=== PATIENT | male | born 1950 | race Caucasian/White ===

== ENCOUNTER 2016-11-04 20:19 | Inpatient (IN) | payer OTHER ==
--- NOTE | ~2016-11-04 | CR63 ---
[facility] A Service of [facility] RADIOLOGY TEXT RESULTS PATIENT: VEL RAMIREZ LOCATION: [facility] 324- : 52 UNIT #: [id number] AGE: [address]: Moises Mensah MD SEX: M ORDER DR: [id number] [facility] [address] [facility]. [place], [place] [address] [id number] I MR#: [id number] Acc #: [id number] NAME: VEL RAMIREZ. : 1950 SEX: M STUDY DATE/TIME: 11/05/2016 7:34 UNIT: [address] ROOM: [facility] STUDY DESCRIPTION: CR Chest 2 View Attending Physician: Bj Mensah M.D. Ordering Physician: Neelima Way M.D. Primary Care Physician: Michael Pressley M.D. MEDICAL IMAGING REPORT This report is preliminary unless electronic signature is present EXAM PA and lateral chest 3 views HISTORY COPD, cough, and congestion for 2 days. TECHNIQUE PA and lateral views of the chest are obtained. COMPARISON Prior chest of 11/04. FINDINGS The cardiac size remains normal. Again, there are changes of chronic obstructive lung disease. There is infiltrate in the right upper lobe. It is not well seen on the frontal radiograph, but is clearly present on the lateral film. This is associated with some mild volume loss in the right upper lobe. This is a new finding compared to the patient's recent chest radiograph of February 2015 and a recent chest CT of July 28, 2016. Lungs otherwise are clear. CONCLUSION 1. Advanced COPD. 2. New right upper lobe infiltrate, best appreciated on the lateral views. Suggest followup chest radiographs until complete clearing. Dictated by... Henry Bolton M.D. THIS IS AN ELECTRONICALLY VERIFIED REPORT Henry Bolton M.D. at 11/05/2016 3:12 PM ELIDIA/emeka [facility] A Service of [facility] RADIOLOGY TEXT RESULTS PATIENT: VEL RAMIREZ LOCATION: [facility] 324-01 : 52 UNIT #: [id number] AGE: [address]: Moises Mensah MD SEX: M ORDER DR: TD: 11/05/2016 14:25 JOB #: [id number] MEDICAL IMAGING REPORT Page 1 of 1 COPY
--- NOTE | ~2016-11-04 | CR63 ---
[facility] A Service of [facility] RADIOLOGY TEXT RESULTS PATIENT: VEL RAMIREZ LOCATION: [facility] 324-01 : 52 UNIT #: [id number] AGE: [address]: Moises Mensah MD SEX: M ORDER DR: [id number] [facility] [address] [facility]. [place], [place] [address] [id number] I MR#: [id number] Acc #: [id number] NAME: VEL RAMIREZ. : 1950 SEX: M STUDY DATE/TIME: 11/07/2016 10:46 UNIT: [address] ROOM: [facility] STUDY DESCRIPTION: CR Chest 2 View Attending Physician: Moises Mensah Ordering Physician: Bj Mensah M.D. Primary Care Physician: Michael Pressley M.D. MEDICAL IMAGING REPORT This report is preliminary unless electronic signature is present EXAM PA and lateral chest, 11/07/2016 COMPARISON Portable chest 11/05/2016 HISTORY Short of air. FINDINGS There is a new right middle lobe infiltrate or atelectasis. There is no effusion or pneumothorax. Heart size is normal. Dictated by... Luis E Garcia M.D. THIS IS AN ELECTRONICALLY VERIFIED REPORT Luis E Garcia M.D. at 11/08/2016 10:54 AM JAI/holly TD: 11/07/2016 18:13 JOB #: [id number] MEDICAL IMAGING REPORT Page 1 of 1 COPY
--- NOTE | ~2016-11-04 | CR72 ---
[facility] A Service of [facility] & [facility] RADIOLOGY TEXT RESULTS PATIENT: VEL RAMIREZ LOCATION: [facility] 324-01 : 52 UNIT #: [id number] AGE: [address]: Moises Mensah MD SEX: M ORDER DR: [id number] [facility] [address] [facility]. [place], [place] [address] [id number] I MR#: [id number] Acc #: [id number] NAME: VEL RAMIREZ. : 1950 SEX: M STUDY DATE/TIME: 11/04/2016 20:47 UNIT: [address] ROOM: [facility] STUDY DESCRIPTION: CR Chest Single View Portable Attending Physician: Bj Mensah M.D. Ordering Physician: Riky Guerra M.D. Primary Care Physician: Michael Pressley M.D. MEDICAL IMAGING REPORT This report is preliminary unless electronic signature is present EXAM Portable chest INDICATIONS Shortness of breath for 2 days. COMPARISON 02/13/2015 FINDINGS No acute infiltrate. Heart size normal. Visualized osseous structures unremarkable. IMPRESSION No active disease. Dictated by... Gareth Gannon M.D. THIS IS AN ELECTRONICALLY VERIFIED REPORT Gareth Gannon M.D. at 11/05/2016 7:45 PM SHAQ/emeka TD: 11/05/2016 11:25 JOB #: [id number] MEDICAL IMAGING REPORT Page 1 of 1 COPY
--- NOTE | ~2016-11-04 | CR211 ---
[facility] A Service of [facility] & [facility] RADIOLOGY TEXT RESULTS PATIENT: VEL RAMIREZ LOCATION: [facility] 324-01 : 52 UNIT #: [id number] AGE: [address]: Moises Mensah MD SEX: M ORDER DR: [id number] [facility] [address]. [place], [place] [address] [id number] I MR#: [id number] Acc #: [id number] NAME: VEL RAMIREZ. : 1950 SEX: M STUDY DATE/TIME: 11/07/2016 10:51 UNIT: [address] ROOM: [facility] STUDY DESCRIPTION: CR Ribs Uni 2 View W PA Ch Rt Attending Physician: Moises Mensah Ordering Physician: Bj Mensah M.D. Primary Care Physician: Michael Pressley M.D. MEDICAL IMAGING REPORT This report is preliminary unless electronic signature is present EXAM PA chest with right rib series COMPARISON Chest radiograph 11/05/2016 HISTORY Fell 1 week ago. Right side rib and chest pain. FINDINGS Chest radiograph demonstrates a right middle lobe atelectasis or infiltrate. Right rib series shows no evidence of fracture. There is no pneumothorax. IMPRESSION Right middle lobe infiltrate or atelectasis, no acute bony abnormality. Dictated by... Luis E Garcia M.D. THIS IS AN ELECTRONICALLY VERIFIED REPORT Luis E Garcia M.D. at 11/08/2016 10:54 AM TEV/holly TD: 11/07/2016 18:14 JOB #: [id number] MEDICAL IMAGING REPORT Page 1 of 1 COPY
--- NOTE | ~2016-11-04 | HP ---
Unit #: [id number] #: [id number] Patient: VEL RAMIREZ [id number] [facility]. [place], [place] [address] [id number] I MR#: [id number] NAME: VEL RAMIREZ. ROOM: 324 Age: 66 Sex: M Admission Date: 11/04/2016 : 1950 Attending Physician: Bj Mensah M.D. Primary Care Physician: Michael Pressley M.D. HISTORY AND PHYSICAL HISTORY OF PRESENT ILLNESS This is a pleasant gentleman long known to us with a history of COPD or possible asthma. He has a remote history of smoking however he states that he quit more than 30 to 40 years ago. Patient states that he has had approximately three days of worsening shortness of breath, no clear significant sick contacts. 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 The patient denies any sort of increasing lower extremity edema and significant weakness. He now presents with what looks like a COPD exacerbation and therefore the patient is being held in the hospital for IV steroids and IV antibiotics. REVIEW OF SYSTEMS The review of systems is positive for worsening shortness of breath, cough which is nonproductive of any sputum, a little bit of chest tightness. No fevers. No chills. No nausea. No vomiting. No vision changes or spinal issues. PAST MEDICAL HISTORY The past medical history is significant for supraventricular tachycardia followed by Dr. Butts, history of reflux seen by Dr. Andino, has a history of hypertension. PAST SURGICAL HISTORY The past surgical history is noncontributory. ALLERGIES Include codeine and hydrocodone. HOME MEDICATIONS The patient's home medications include: 1. Amlodipine and olmesartan one each daily. 2. ProAir inhaled q.i.d. 3. Nexium 40 mg daily. 4. Bevespi two puffs inhaled daily. 5. Asmanex two puffs inhaled daily. 6. Mucus DM one tablet q.4 h. 7. Medrol Dosepak finishing up. 8. Azithromycin 500 mg daily. SOCIAL HISTORY The patient has former smoking but quit approximately 30 years ago. Unit #: [id number] #: [id number] Patient: VEL RAMIREZ Patient has been working at [employer]. He lives at home with his family. FAMILY HISTORY The patient's family history is significant for lung disease on his mom's side and no other lung disease known. PHYSICAL EXAMINATION VITAL SIGNS: T-current 98.0, pulse 97, respiratory rate 18, blood pressure 120/76, sating 96% on 2 L nasal cannula. Ins and outs 240 in and 200 out. HEENT: Extraocular movements are intact. Pupils equal, round and reactive to light. Head is normocephalic and atraumatic. Oropharynx does not show any significant lesions. NECK: Neck is straight and smooth. CHEST: Shows very decreased breath sounds bilaterally. CARDIOVASCULAR EXAM: Regular rate. No gallop. ABDOMEN: The abdomen is soft, nontender, nondistended. EXTREMITIES: Show no edema. DIAGNOSTIC STUDIES IMAGING: Chest x-ray two view shows new right upper lobe infiltrate possibly seen on the lateral views. LABORATORY: Sputum is pending. No active disease seen on previous chest x-ray. Basic metabolic panel is essentially normal except for glucose is elevated at 176. WBC is 8.3, hemoglobin 15.5, platelets of 238. Basic metabolic shows sodium 138, potassium 3.7, BUN and creatinine is 13/0.9, glucose is 141. ASSESSMENT 1. Possible right upper lobe pneumonia. 2. Acute hypoxic respiratory failure. 3. Cough, nonproductive. 4. Elevation in bilirubin. 5. Possible healthcare-associated pneumonia. PLAN Will get a procalcitonin, evaluate the stability of the respiratory status. Dictated by Shubham Guardado/andres TD: 11/05/2016 17:48 JOB #: [id number] Unit #: [id number] #: [id number] Patient: VEL RAMIREZ HISTORY AND PHYSICAL Page 1 of 1 X Moises Mensah MD X HISTORY AND PHYSICAL
--- NOTE | ~2016-11-04 | DS ---
Unit #: [id number] #: [id number] Patient: VEL RAMIREZ [id number] [place], [place] [address] [id number] I MR#: [id number] NAME: VEL RAMIREZ. ROOM: 324 Age: 66 Sex: M Admission Date: 11/04/2016 : 1950 Discharge Date: 11/11/2016 Attending Physician: Bj Mensah M.D. Primary Care Physician: Michael Pressley M.D. DISCHARGE SUMMARY DISCHARGE DIAGNOSES 1. Chronic obstructive pulmonary disease exacerbation. 2. Bbuxj-wn-vysldfq respiratory failure. 3. Right upper lobe pneumonia. 4. Bilirubin elevation. HISTORY OF PRESENT ILLNESS The patient is a very pleasant gentleman, long known to us with a history of chronic obstructive pulmonary disease/asthma, remote history of smoking. However, he states that he quit more than 30 or 40 years ago. The patient states that he has had about three days of worsening shortness of breath. No apparent sick contacts. 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 He has been exposed to lots of lawn clippings and dust lately. The patient denies any sort of lower extremity edema, any sort of fevers, chills, nausea, vomiting, diarrhea, hematochezia, hematuria. He is having cough which is nonproductive of sputum and a little bit of chest tightness. The patient has been admitted to the hospital to be started on IV steroids and antibiotics. HOSPITAL COURSE The patient slowly improved. He required oxygen at 3 liters throughout most of the hospitalization. He was feeling progressively short of breath. However, he had worsening dyspnea, malaise and fatigue. He also had some episodes of insomnia and anxiety. These slowly improved. He had an 10-day course of azithromycin and is finishing up a 10-day course of Rocephin. The patient was on scheduled nebs and on scheduled steroids, which were switched to oral and then tapered. DISCHARGE MEDICATIONS 1. Combivent 1 puff q.i.d. 2. Albuterol HFA 2 puffs q.4 h. p.r.n. 3. Prednisone 60 mg times 1 days, 50 mg times 1 day, 40 mg times 1 day, 30 mg times 1 day, 20 mg times 1 day, 10 mg times 1 day. 4. Acetaminophen 650 mg q.4 h. p.r.n. headache. 5. Asmanex 2 puffs inhaled daily. 6. Guaifenesin/Dexamethorphan Mucus DM relief tablets p.r.n. mucus. 7. Amlodipine/olmesartan AKA Ray 5/20 mg tablets daily. 8. Esomeprazole 40 mg daily. 9. Omnicef 300 mg p.o. b.i.d. times 2 days. FOLLOWUP Follow up with Dr. Hammer in two weeks. Unit #: [id number] #: [id number] Patient: VEL RAMIREZ Dictated by... Shubham Guardado/miriam TD: 11/12/2016 07:59 JOB #: [id number] DISCHARGE SUMMARY Page 1 of 1 X Moises Mensah MD X DISCHARGE SUMMARY
--- NOTE | ~2016-11-04 | EKG ---
PATIENT: VEL RAMIREZ UNIT #: [id number] Ventricular Rate: 111 BPM Atrial Rate: 111 BPM P-R Interval: 150 ms QRS Duration: 92 ms Q-T Interval: 318 ms QTC Calculation(Bezet): 432 ms P [place]: 64 degrees Calculated R [place]: 65 degrees Calculated T [place]: 48 degrees Diagnosis Line: Sinus tachycardia with Premature atrial complexes Diagnosis Line: Otherwise normal ECG Diagnosis Line: When compared with ECG of 15-JUN-2014 11:44, Diagnosis Line: Premature atrial complexes are now Present Diagnosis Line: Criteria for Septal infarct are no longer Present Diagnosis Line: Confirmed by DAJUAN TAYLOR MD ([id number]) on 11/10/2016 Diagnosis Line: 2:27:23 PM INTERPRETING MD: BRANDON PEDRAZA
[~2016-11-04 20:19] MED LIST: ACETAMINOPHEN PO; ADVAIR 5001 DISK W/1 IH; ADVAIR 5001 DISK W/2 INH; ADVAIR 5001 DISK W/D; ADVAIR 5001 DISK W/D INH; ALBUTEROL MININEB NEB; ALBUTEROL0.83 MG/ML IH; ALBUTEROL0.83 MG/ML NEB; ALBUTEROL17 GM; ALBUTEROL17 GM INH; ALEVE220 M1 PO; ALPRAZOLAM PO; AMOXICILLIN875 MG PO; ANTIINFLAMMATORY PO; AZITHROMYCIN250 MG PO; AZOR 5/20 MG TA1 TAB PO; BLOOD PRESSURE; CARDIZEM CD; CARDIZEM CD180 M1 PO; CIPRO PO; COMBIVENT U/D3 M1 INH; COMBIVENT U/D3 M2 INH; DICLOFENAC PO; DOXYCYCLINE MO100 MG PO; DOXYCYCLINE150 MG PO; DULERA 100 MCG/13 GM INH; DULERA 200 MCG/13 GM IN; DUONEB 2.5-0.5 M3 ML; DUONEB 2.5-0.5 M3 ML NEB; FLEXERIL PO; FLEXERIL10 MG PO; GUAIFENESIN600 MG PO; HYDROCODON-ACE1 EAC7 PO; KEFLEX; LEVAQUIN; LORTAB 5/500 TA1 TA1 PO; MEDROL DOSEPAK4 MG PO; MEDROL4 MG PO; NAPROSYN500 MG PO; NEXIUM PO; NYSTATIN5 ML PO; OMEPRAZOLE40 M1 PO; OMNICEF300 M1 PO; OMNICEF300 MG PO; PAIN; PREDNISONE; PREDNISONE PO; PREDNISONE10 MG; PREDNISONE50 MG PO; PRILOSEC PO; PRILOSEC20 MG PO; PROAIR HFA8.5 GM IH; PROAIR HFA8.5 GM INH; PROTONIX40 MG/BLIS PO; PROVENTIL INH0.5 ML HHN; PULMICORT0.25 MG/2 PO; PULMICORT200 MCG/AE INH; ROBAXIN500 MG PO; SALINE NOSE SPR45 M1 NS; SINGULAIR; SINGULAIR PO; TAMIFLU75 M1 PO; TYLENOL325 M1 PO; UNK ABX; VOLTAREN50 MG PO; ZESTRIL10 MG PO; ZITHROMAX1 G/PKT PO; ZOFRAN ODT4 MG PO; ZYFLO600 MG; [UNRECOGNIZED DRUG - OTHER]; [UNRECOGNIZED DRUG - REMARK]; [UNRECOGNIZED DRUG - REMARK] INH
[2016-11-04] MEDS ORDERED: NEXIUM PO (20:30)
[2016-11-04] MEDS ORDERED: BEVESPI AEROS10.7 GM INH (20:30)
[2016-11-04] MEDS ORDERED: ASMANEX220 MC1 INH (20:31)
[2016-11-04] MEDS ORDERED: MUCUS RELIEF D1 EACH PO (20:31)
[2016-11-04] MEDS ORDERED: ZITHROMAX500 MG PO (20:32)
[2016-11-04] MEDS ORDERED: MEDROL DOSEPAK4 MG PO (20:32)
[2016-11-04 21:07] LABS: POC - CKMB 1.5 ng/mL (0.0-7.9); POC - TROPONIN <0.05 ng/mL (<=0.05)
[2016-11-04 21:13] LABS: BASOPHIL% 0.3 % (0-2.5); HEMATOCRIT 45.9 % (38.0-50.0); HEMOGLOBIN 15.5 gm/dL (13.0-16.0); LYMPHOCYTE# 0.5 X10e3 (1.0-3.5); LYMPHOCYTE% 5.8 % (17.0-45.0); MEAN CORPUSCULAR HEMOGLOBIN 28.5 PG (28-34); MEAN CORPUSCULAR HGB CONC 33.9 g/dL (30-36); MEAN PLATELET VOLUME 7.8 FL (6.5-11.5); MONOCYTE# 0.2 X10e3 (0-1.0); MONOCYTE% 2.6 % (3.0-12.0); NEUTROPHIL# 7.5 X10e3 (1.5-7.1); NEUTROPHIL% 91.3 % (40-75); PLATELET COUNT 238 X10e3 (140-420); RED BLOOD COUNT 5.46 X10e (3.90-5.60); WHITE BLOOD COUNT 8.3 X10e3 (4.0-10.5)
[2016-11-04 21:14] LABS: DIFF IND NO
[2016-11-04 21:42] LABS: ALBUMIN SERUM 4.3 g/dL (3.5-5.0); BILIRUBIN, DIRECT 0.1 mg/dL (0.0-0.2); BILIRUBIN,TOTAL 1.1 mg/dL (0.2-2.0); BUN/CREATININE RATIO 14.44; CALCIUM SERUM 9.2 mg/dL (8.4-10.2); CREATININE SERUM 0.9 mg/dL (0.6-1.4); GLOM FILT RATE Estimated 89.9 mL/min (>60); POTASSIUM 3.7 mmol/L (3.5-5.1); PROTEIN TOTAL SERUM 7.3 g/dL (6.0-8.3)
[2016-11-05 06:24] LABS: BASOPHIL% 0.1 % (0-2.5); HEMATOCRIT 41.7 % (38.0-50.0); HEMOGLOBIN 14.2 gm/dL (13.0-16.0); LYMPHOCYTE# 0.4 X10e3 (1.0-3.5); MEAN CELL VOLUME 84.1 FL (83-96); MEAN CORPUSCULAR HEMOGLOBIN 28.6 PG (28-34); MEAN PLATELET VOLUME 7.9 FL (6.5-11.5); MONOCYTE# 0.1 X10e3 (0-1.0); MONOCYTE% 0.9 % (3.0-12.0); NEUTROPHIL# 7.2 X10e3 (1.5-7.1); PLATELET COUNT 216 X10e3 (140-420); RED BLOOD COUNT 4.96 X10e (3.90-5.60); RED CELL DISTRIBUTION WIDTH 14.1 % (11.0-15.5); WHITE BLOOD COUNT 7.6 X10e3 (4.0-10.5)
[2016-11-05 06:42] LABS: DIFF IND NO
[2016-11-05 06:53] LABS: CALCIUM SERUM 8.8 mg/dL (8.4-10.2); GLOM FILT RATE Estimated 79.2 mL/min (>60); POTASSIUM 3.9 mmol/L (3.5-5.1)
[2016-11-06 04:51] LABS: ARTERIAL BLD GAS O2 SATURATION 91.4 % (90.0-100.0); ARTERIAL BLOOD GAS ALLEN TEST NORMAL; ARTERIAL BLOOD GAS ART SITE LEFT RADIAL; ARTERIAL BLOOD GAS HCO3 25.5 mmol/L; ARTERIAL BLOOD GAS MET HB 0.3 %sat (0.0-2.0); ARTERIAL BLOOD GAS PCO2 38.9 mmHg (35.0-45.0); ARTERIAL BLOOD GAS PO2 57.2 mmHg (80.0-100); ARTERIAL BLOOD GAS pH 7.425 (7.350-7.450); ARTERIAL DRAW? YES
[2016-11-06 04:52] LABS: ARTERIAL BLOOD GAS DELIVERY NASAL CANNULA; ARTERIAL BLOOD GAS LITER FLOW 2.5
[2016-11-06 05:45] LABS: HEMATOCRIT 41.8 % (38.0-50.0); HEMOGLOBIN 14.1 gm/dL (13.0-16.0); MEAN CELL VOLUME 83.9 FL (83-96); MEAN CORPUSCULAR HEMOGLOBIN 28.2 PG (28-34); MEAN CORPUSCULAR HGB CONC 33.7 g/dL (30-36); MEAN PLATELET VOLUME 7.7 FL (6.5-11.5); RED BLOOD COUNT 4.98 X10e (3.90-5.60); RED CELL DISTRIBUTION WIDTH 13.9 % (11.0-15.5)
[2016-11-06 05:46] LABS: WHITE BLOOD COUNT 11.5 X10e3 (4.0-10.5)
[2016-11-06 06:46] LABS: ALBUMIN SERUM 3.5 g/dL (3.5-5.0); ALKALINE PHOSPHATASE 71 U/L (32-92); ALT (SGPT) 29 U/L (10-40); AST (SGOT) 48 U/L (10-42); BILIRUBIN,TOTAL 0.5 mg/dL (0.2-2.0); BLOOD UREA NITROGEN 20 mg/dL (9-23); BUN/CREATININE RATIO 22.22; CARBON DIOXIDE 25 mmol/L (22-31); CHLORIDE 102 mmol/L (100-111); CREATININE SERUM 0.9 mg/dL (0.6-1.4); GLOM FILT RATE Estimated 89.9 mL/min (>60); GLUCOSE FASTING 159 mg/dL (70-110); POTASSIUM 4.1 mmol/L (3.5-5.1); PROTEIN TOTAL SERUM 6.2 g/dL (6.0-8.3); SODIUM 135 mmol/L (135-145)
[2016-11-06 06:55] LABS: PROCALCITONIN <0.05 NG/ML
[2016-11-10 06:36] LABS: BUN/CREATININE RATIO 27.14; CALCIUM SERUM 8.1 mg/dL (8.4-10.2); CREATININE SERUM 0.7 mg/dL (0.6-1.4); GLOM FILT RATE Estimated 99.8 mL/min (>60); POTASSIUM 4.7 mmol/L (3.5-5.1)
[2016-11-11 05:35] LABS: HEMATOCRIT 41.7 % (38.0-50.0); HEMOGLOBIN 14.1 gm/dL (13.0-16.0); MEAN CELL VOLUME 84.3 FL (83-96); MEAN CORPUSCULAR HEMOGLOBIN 28.5 PG (28-34); MEAN CORPUSCULAR HGB CONC 33.8 g/dL (30-36); MEAN PLATELET VOLUME 7.5 FL (6.5-11.5); RED BLOOD COUNT 4.94 X10e (3.90-5.60); RED CELL DISTRIBUTION WIDTH 13.7 % (11.0-15.5); WHITE BLOOD COUNT 9.4 X10e3 (4.0-10.5)
[2016-11-11] MEDS ORDERED: ACETAMINOPHEN PO (20:20)
[2016-11-12] MEDS ORDERED: PROAIR HFA8.5 GM INH (07:15)
[2016-11-12] MEDS ORDERED: COMBIVENT U/D3 M2 (07:17)
[2016-11-12] MEDS ORDERED: COMBIVENT MININEB INH (07:18)
[2016-11-12] MEDS ORDERED: PREDNISONE10 MG PO (07:19)
[2016-11-12] MEDS ORDERED: OMNICEF300 MG PO (07:24)
[2016-11-12] MEDS ORDERED: PREDNISONE10 M1 (07:25)
== END 2016-11-12 08:37 | disposition home or self-care (01) | DRG 189 ==
LOC: CED 20:19 → C3A PCU 23:05 → CEDOF 23:05 → CED 23:23 → CEDOF 11-05 02:10 → C3A PCU 11-05 02:10
PROVIDERS: Emergency Medicine; Internal Medicine Pulmonary Disease
DX: J96.21 Acute and chronic respiratory failure with hypoxia (principal); J18.9 Pneumonia, unspecified organism; J44.1 Chronic obstructive pulmonary disease with (acute) exacerbation; J44.0 Chronic obstructive pulmonary disease with (acute) lower respiratory infection; Z87.891 Personal history of nicotine dependence; Y95 Nosocomial condition; Z88.5 Allergy status to narcotic agent
CPT/HCPCS: 36415; 36600; 71010; 71020; 71101; 80048; 80053; 80076; 82308; 82553; 82803; 84484; 85025; 85027; 87040; 87070; 87205; 87633; 93005; 94640; 94760; 96374; 96375; 99291; G0238; J0456; J0696; J1650; J2060; J2930